=== PATIENT | male | born 1945 | race Caucasian/White ===

== ENCOUNTER 2017-05-30 16:46 | Inpatient (IN) | payer OTHER, MEDICARE ==
[~2017-05-30] VITALS: Ht 172.7 cm; Wt 83.0 kg
[~2017-05-30 16:46] MED LIST: TAMS0.4C67 PO
[2017-05-30 16:59] VITALS: BP 150/71; PULSE 84; RESP 24; TEMP 98.5; O2SAT 100
[2017-05-30] MEDS ORDERED: BUPIVACAINE HCL PF 0.5% 10 ML VIAL NERV BLOCK ONE (17:00)
[2017-05-30] MEDS ORDERED: AMPICILLIN-SULBACTAM INJ 3 GM in SODIUM CHLORIDE 0.9% INJ 100 ML IV ONE (17:00)
[2017-05-30] MEDS ORDERED: LIDOCAINE HCL 1% 20 ML VIAL INFIL ONE (17:00)
[2017-05-30] MEDS ORDERED: MORPHINE SULFATE 2 MG/ML INJ IV PUSH ONE ×2 (17:00→18:15)
[2017-05-30] MEDS ORDERED: ONDANSETRON HCL 4 MG/2 ML VIAL IV PUSH ONE (17:00)
[2017-05-30] MEDS ORDERED: TETANUS/DIPHTHERIA TOXOID ADULT 0.5 ML VIAL IM ONE (17:00)
[2017-05-30] MEDS ORDERED: TAMS0.4C4 PO (17:05)
[2017-05-30] MEDS ORDERED: SODIUM CHLORID 0.9% 500 ML INJ 500 ML IV ONE (17:15)
[2017-05-30 17:23] VITALS: BP 150/75; PULSE 85; RESP 17; O2SAT 100
--- NOTE | 2017-05-30 17:35 | RADRPT ---
EXAM DATE/TIME: 05/30/2017 17:06 [facility] COMPARISON: No previous studies available for comparison. INDICATIONS : Shortness of breath. MEDICAL HISTORY : None. SURGICAL HISTORY : None. ENCOUNTER: Initial ACUITY: 1 day PAIN SCORE: 0/10 LOCATION: Bilateral chest FINDINGS: A single view of the chest demonstrates the lungs to be symmetrically aerated without evidence of mas s, infiltrate or effusion. The cardiomediastinal contours are unremarkable. Osseous structures are intact. CONCLUSION: No acute disease. Randy Gomez MD on May 30, 2017 at 17:33 Board Certified Radiologist. This report was verified electronically.
--- NOTE | 2017-05-30 17:57 | RADRPT ---
EXAM DATE/TIME: 05/30/2017 17:10 [facility] COMPARISON: No previous studies available for comparison. INDICATIONS : Left hand, first digit pain and laceration. MEDICAL HISTORY : None. SURGICAL HISTORY : None. ENCOUNTER: Initial ACUITY: 1 day PAIN SCORE: 9/10 LOCATION: Left hand, first digit. FINDINGS: AP, lateral and oblique views of the left hand were obtained and demonstrate amputation of the distal portion of the first distal phalanx with overlying soft tissue swelling. There is a flexion type def ormity involving the fifth proximal phalangeal joint. There is diffuse osteopenia with no acute fract ure. Osteoarthritic change is present. CONCLUSION: Amputation of the distal half of the first phalanx. Randy Gomez MD on May 30, 2017 at 17:54 Board Certified Radiologist. This report was verified electronically.
--- NOTE | 2017-05-30 18:21 | PD ---
HPI Chief Complaint: Bite or Sting Time Seen by Provider: 16:56 Travel History International Travel<30 days: No Contact w/Intl Traveler<30days: No Traveled to known affect area: No History of Present Illness HPI 71-year-old male that presents to the ED for evaluation of dog bite to the left hand. Per patient he was helping his neighbor's dog who apparently got hit by a car and was holding severely. Patient felt compelled to help the animal and when he tried to grab the dog to console the animal dog bit him on his left hand. Patient had an amputation of his left thumb from the bite. 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 Patient states that he has 6 out of 10 pain on the finger. After the incident patient apparently had a syncopal episode. He does not believe that he lost complete consciousness. Ambulance showed up and give him some fluids and Zofran. Per patient his been doing well since. He does not know the last time he had tetanus booster. He has no allergies to medication. He denies any other injuries. He states that the only medical history he has his BPH. Denies any chest pain or shortness of breath. Injury occurred an hour ago. Per patient he last ate about 2 hours ago before coming. PFSH Past Medical History Diminished Hearing: No Genitourinary: Yes (PROSTATE ) Tetanus Vaccination: Never Vaccinated Influenza Vaccination: No Past Surgical History Surgical History: No Previous Surgery Social History Alcohol Use: Yes (OCCASIONAL RARE) Tobacco Use: No Substance Use: Yes (MARIJUANA IN THE PAST) Allergies-Medications (Allergen,Severity, Reaction): Coded Allergies: No Known Allergies (Unverified Adverse Reaction, Unknown, 05/30/17) Reported Meds & Prescriptions Reported Meds & Active Scripts Active Reported Tamsulosin (Tamsulosin HCl) 0.4 Mg Cap 0.4 Mg PO HS Review of Systems Except as stated in HPI: all other systems reviewed are Neg Physical Exam Narrative GENERAL: SKIN: Warm and dry. HEAD: Atraumatic. Normocephalic. EYES: Pupils equal and round. No scleral icterus. No injection or drainage. ENT: No nasal bleeding or discharge. Mucous membranes pink and moist. Tongue is midline. No uvula deviation. NECK: Trachea midline. No JVD. CARDIOVASCULAR: Regular rate and rhythm. RESPIRATORY: No accessory muscle use. Clear to auscultation. Breath sounds equal bilaterally. GASTROINTESTINAL: Abdomen soft, non-tender, nondistended. Hepatic and splenic margins not palpable. MUSCULOSKELETAL: Extremities without clubbing, cyanosis, or edema. No obvious deformities. Full range of motion of the upper and lower extremities bilaterally. Patient has an amputation around the area of the joint of the left thumb. Tender to touch. Minimal bleeding noted. Good pulses and good sensation. No other deformities or injuries noted on the fingers. 2+ pulses bilaterally. NEUROLOGICAL: Awake and alert. No obvious cranial nerve deficits. Motor grossly within normal limits. Five out of 5 muscle strength in the arms and legs. Normal speech. PSYCHIATRIC: Appropriate mood and affect; insight and judgment normal. Data Data Last Documented VS Vital Signs Date Time Temp Pulse Resp B/P (MAP) Pulse Ox O2 Delivery O2 Flow Rate FiO2 05/30/17 17:23 85 17 150/75 (100) 100 Room Air 05/30/17 16:59 98.5 Orders Orders Hand, Complete ([id number]) (05/30/17 16:56) Ice/Cold Pack (05/30/17 16:56) Complete Blood Count With Diff (05/30/17 16:56) Comprehensive Metabolic Panel (05/30/17 16:56) Ckmb (Isoenzyme) Profile (05/30/17 16:56) Troponin I (05/30/17 16:56) Prothrombin Time / Inr (Pt) (05/30/17 16:56) Act Partial Throm Time (Ptt) (05/30/17 16:56) Urinalysis - C+S If Indicated (05/30/17 16:56) Magnesium (Mg) (05/30/17 16:56) Chest, Single Ap (05/30/17 16:56) Ct Brain W/O Iv Contrast(Rout) (05/30/17 16:56) Iv Access Insert/Monitor (05/30/17 16:56) Ecg Monitoring (05/30/17 16:56) Oximetry (05/30/17 16:56) Lidocaine 1% Inj (Xylocaine 1% Inj) (05/30/17 17:00) Morphine Inj (Morphine Inj) (05/30/17 17:00) Ondansetron Inj (Zofran Inj) (05/30/17 17:00) Ampicillin-Sulbactam Inj (Unasyn Inj) (05/30/17 17:00) Tetanus/Diphtheria Tox Adult (Tetanus/Di (05/30/17 17:00) Bupivacaine Pf 0.5% Inj (Marcaine Pf 0.5 (05/30/17 17:00) Sodium Chlorid 0.9% 500 Ml Inj (Ns 500 M (05/30/17 17:15) Wound Care (05/30/17 17:34) Morphine Inj (Morphine Inj) (05/30/17 18:15) Electrocardiogram (05/30/17 ) CKMB (05/30/17 17:00) CKMB% (05/30/17 17:00) Admit Order (Ed Use Only) (05/30/17 19:11) Consult Hand Surgery (05/30/17 ) Labs Laboratory Tests Test 05/30/17 17:00 White Blood Count 7.6 TH/MM3 Red Blood Count 4.36 MIL/MM3 Hemoglobin 14.8 GM/DL Hematocrit 41.5 % Mean Corpuscular Volume 95.0 FL Mean Corpuscular Hemoglobin 34.0 PG Mean Corpuscular Hemoglobin Concent 35.8 % Red Cell Distribution Width 13.1 % Platelet Count 276 TH/MM3 Mean Platelet Volume 8.1 FL Neutrophils (%) (Auto) 68.7 % Lymphocytes (%) (Auto) 22.5 % Monocytes (%) (Auto) 7.4 % Eosinophils (%) (Auto) 1.0 % Basophils (%) (Auto) 0.4 % Neutrophils # (Auto) 5.2 TH/MM3 Lymphocytes # (Auto) 1.7 TH/MM3 Monocytes # (Auto) 0.6 TH/MM3 Eosinophils # (Auto) 0.1 TH/MM3 Basophils # (Auto) 0.0 TH/MM3 CBC Comment DIFF FINAL Differential Comment Prothrombin Time 10.0 SEC Prothromb Time International Ratio 1.0 RATIO Activated Partial Thromboplast Time 23.7 SEC Blood Urea Nitrogen 14 MG/DL Creatinine 1.19 MG/DL Random Glucose 111 MG/DL Total Protein 7.2 GM/DL Albumin 3.9 GM/DL Calcium Level 8.2 MG/DL Magnesium Level 2.0 MG/DL Alkaline Phosphatase 118 U/L Aspartate Amino Transf (AST/SGOT) 31 U/L Alanine Aminotransferase (ALT/SGPT) 34 U/L Total Bilirubin 1.0 MG/DL Sodium Level 140 MEQ/L Potassium Level 3.7 MEQ/L Chloride Level 106 MEQ/L Carbon Dioxide Level 19.9 MEQ/L Anion Gap 14 MEQ/L Estimat Glomerular Filtration Rate 61 ML/MIN Total Creatine Kinase 133 U/L Creatine Kinase MB 2.7 NG/ML Troponin I LESS THAN 0.02 NG/ML MDM Medical Decision Making Medical Screen Exam Complete: Yes Emergency Medical Condition: Yes Medical Record Reviewed: Yes Interpretation(s) Last Impressions Hand X-Ray 05/30/171655 Signed Impressions: Service Date/Time: May 17:10 - CONCLUSION: Amputation of the distal half of the first phalanx. Randy Gomez MD Chest X-Ray 05/30/171655 Signed Impressions: Service Date/Time: May 17:06 - CONCLUSION: No acute disease. Randy Gomez MD Differential Diagnosis Finger amputation versus dog bite versus dog bite infection Narrative Course 71-year-old male that presents to the ED for evaluation of left first digit amputation. Patient was properly examined and was found to have signs and symptoms consistent with finger amputation. Case was immediately discussed with Dr. Swanson who agrees the patient should be admitted to medicine and become NPO for surgery tonight. Patient was started IV antibiotics. Labs and imaging were done to rule out any sign of other syncopal causes but likely secondary to vasovagal from the injury. Patient agreed for us to proceed. Labs and imaging were essentially unremarkable other than for the above-mentioned injury. patient was admitted to Dr Carcamo who agrees with plan. patient and family agree with plan. Diagnosis Primary Impression: Dog bite of finger Qualified Codes: S61.259A - Open bite of unspecified finger without damage to nail, initial encounter; W54.0XXA - Bitten by dog, initial encounter Additional Impression: Finger amputation, traumatic Qualified Codes: S68.119A - Complete traumatic metacarpophalangeal amputation of unspecified finger, initial encounter Admitting Information Admitting Physician Requests: Admit Arash Ochoa May 30, 2017 18:21
[2017-05-30 18:26] LABS: AUTOMATED NEUTROPHIL # 5.2 TH/MM3 (1.8-7.7); BASOPHIL % 0.4 % (0.0-2.0); EOSINOPHIL # 0.1 TH/MM3 (0-0.4); HEMATOCRIT 41.5 % (39.0-51.0); HEMOGLOBIN 14.8 GM/DL (13.0-17.0); LYMPH % 22.5 % (9.0-44.0); LYMPHOCYTE # 1.7 TH/MM3 (1.0-4.8); MEAN CORPUSCULAR HGB CONC 35.8 % (32.0-36.0); MEAN PLATELET VOLUME 8.1 FL (7.0-11.0); MONO % 7.4 % (0.0-8.0); MONOCYTE # 0.6 TH/MM3 (0-0.9); NEUT % 68.7 % (16.0-70.0); PLATELET COUNT 276 TH/MM3 (150-450); RED BLOOD COUNT 4.36 MIL/MM3 (4.50-5.90); RED CELL DISTRIBUTION WIDTH 13.1 % (11.6-17.2); WHITE BLOOD COUNT 7.6 TH/MM3 (4.0-11.0)
[2017-05-30 18:47] LABS: ALBUMIN 3.9 GM/DL (3.4-5.0); ALKALINE PHOSPHATASE 118 U/L (45-117); ALT (GPT) 34 U/L (12-78); AST (GOT) 31 U/L (15-37); BICARBONATE 19.9 MEQ/L (21.0-32.0); BLOOD UREA NITROGEN 14 MG/DL (7-18); CALCIUM 8.2 MG/DL (8.5-10.1); CHLORIDE 106 MEQ/L (98-107); CREATININE 1.19 MG/DL (0.60-1.30); GLOMERULAR FILTRATION RATE 61 ML/MIN (>89); GLUCOSE,RANDOM 111 MG/DL (74-106); SODIUM (NA) 140 MEQ/L (136-145); TOTAL PROTEIN 7.2 GM/DL (6.4-8.2); TROPONIN I LESS THAN 0.02 NG/ML (0.02-0.05)
--- NOTE | 2017-05-30 18:54 | RADRPT ---
EXAM DATE/TIME: 05/30/2017 18:26 [facility] COMPARISON: No previous studies available for comparison. INDICATIONS : Head pain due to fall. RADIATION DOSE: 36.84 CTDIvol (mGy) MEDICAL HISTORY : None SURGICAL HISTORY : None. ENCOUNTER: Initial ACUITY: 1 day PAIN SCALE: 1/10 LOCATION: Bilateral cranial TECHNIQUE: Multiple contiguous axial images were obtained of the head. Using automated exposure control and adj ustment of the mA and/or kV according to patient size, radiation dose was kept as low as reasonably a chievable to obtain optimal diagnostic quality images. DICOM format image data is available electro nically for review and comparison. FINDINGS: CEREBRUM: The ventricles are normal for age. No evidence of midline shift, mass lesion, hemorrhage or acute in farction. No extra-axial fluid collections are seen. POSTERIOR FOSSA: The cerebellum and brainstem are intact. The 4th ventricle is midline. The cerebellopontine angle i s unremarkable. EXTRACRANIAL: The visualized portion of the orbits is intact. SKULL: The calvaria is intact. No evidence of skull fracture. CONCLUSION: Negative noncontrast head CT. Olivier Irizarry MD on May 30, 2017 at 18:50 Board Certified Radiologist. This report was verified electronically.
[2017-05-30] MEDS ORDERED: fentaNYL CITRATE 250 MCG/5 ML AMP ONE (19:20)
[2017-05-30] MEDS ORDERED: NALOXONE HCL 0.4 MG/ML AMP IV PUSH PRN (20:00)
[2017-05-30] MEDS ORDERED: MORPHINE SULFATE 2 MG/ML INJ IV PUSH PRN (20:00)
[2017-05-30] MEDS ORDERED: SODIUM CHLORIDE 0.9% FLUSH 10 ML FLUSH IV FLUSH PRN (20:00)
[2017-05-30] MEDS ORDERED: SODIUM CHLORIDE 0.9% FLUSH 10 ML FLUSH IV FLUSH SCH (21:00)
[2017-05-30] MEDS ORDERED: BACITRACIN TOP OINT 15 GM TUBE ONE (21:43)
--- NOTE | 2017-05-30 22:05 | PD.OP ---
Operative Report Preoperative Diagnosis: (1) Partial traumatic metacarpophalangeal amputation of left thumb, initial encounter (2) Dog bite of left thumb Postoperative Diagnosis: (1) Partial traumatic metacarpophalangeal amputation of left thumb, initial encounter (2) Dog bite of left thumb Procedure: exploration, wash, revision amputation and closure left thumb partial amputation Anesthesia: local 5 cc of 2% lidocaine and 0.5% marcaine Surgeon: Surjit Hamm Commercial Photographer(s): claudia Operation and Findings: partial transverse traumatic amputation through distal phalanx base left thumb with exposed bone Surjit Hamm MD May 30, 2017 22:05
[2017-05-30] MEDS ORDERED: FAMOTIDINE 20 MG/2 ML VIAL ONE ×2 (22:21→22:23)
[2017-05-30] MEDS: AMPICILLIN-SULBACTAM INJ 3 GM in SODIUM CHLORIDE 0.9% INJ 100 ML IV SCH (23:28)
[2017-05-30 23:40] VITALS: PULSE 71
[2017-05-31] VITALS: BP 137/73; PULSE 73; RESP 16; TEMP 95; O2SAT 96
[2017-05-31] MEDS ORDERED: TAMSULOSIN HCL 0.4 MG CAP PO ONE
--- NOTE | 2017-05-31 00:05 | HHI.HP ---
HPI Service [facility] Primary Care Physician Unknown Admission Diagnosis acute left thumb amputation, dog bite, syncope Diagnoses: (1) Dog bite of left thumb (2) Partial traumatic metacarpophalangeal amputation of left thumb, initial encounter (3) Syncope Chief Complaint: "Dog bit the tip of my thumb off" Travel History International Travel<30 Days: No Contact w/Intl Traveler <30 Da: No Traveled to Known Affected Are: No History of Present Illness Mr. Rosario is a very pleasant 71-year-old male with a history of benign prostatic hypertrophy who presented to the emergency department on 05/30/2017 after a dog bit his distal thumb off. The patient is seen in his hospital room postoperatively. He states that there is a hearing-impaired couple who live next door to him who have a service dog that was hit by a car. He ran into the street to try to remove the dog from oncoming traffic and further injury when the dog lashed out and bit him. He states he immediately noted that the tip of his thumb was missing and no one was able to ever recover this missing piece. He sat on the front steps at his house with his hand up while EMS was there and he began to feel diaphoretic, lightheaded, nauseated, and experienced a syncopal episode after the injury. When he came to, he noticed a small amount of vomit on his shirt. He denies any chest pain, shortness of breath, or headache prior to the syncopal episode. He has never had a prior syncopal episode. He denies any recent illness, fever, chills, nausea, vomiting, or diarrhea. He denies any history of diabetes mellitus, hypertension, coronary artery disease, irregular heart rhythm , liver disease, kidney disease, DVT, PE, CVA, seizures, thyroid disease, or cancer. Review of Systems Except as stated in HPI: all other systems reviewed are Neg Past Family Social History Past Medical History BPH . Past Surgical History Denies . Reported Medications Reported Meds & Active Scripts Active Reported Tamsulosin (Tamsulosin HCl) 0.4 Mg Cap 0.4 Mg PO HS . Allergies: Coded Allergies: No Known Allergies (Unverified Allergy, Unknown, 05/30/17) Active Ordered Medications Current Medications Lidocaine HCl (Xylocaine 1% Inj) 20 ml ONCE ONCE INFIL ; Start 05/30/17 at 17: 00; Stop 05/30/17 at 17:58; Status DC Morphine Sulfate (Morphine Inj) 4 mg ONCE ONCE IV PUSH Last administered on 04/06at 17:19; Start 05/30/17 at 17:00; Stop 05/30/17 at 17:02; Status DC Ondansetron HCl (Zofran Inj) 4 mg ONCE ONCE IV PUSH Last administered on at 17:21; Start 05/30/17 at 17:00; Stop 05/30/17 at 17:02; Status DC Ampicillin Sodium/ Sulbactam Sodium 3 gm/Sodium Chloride 100 ml @ 200 mls/hr ONCE ONCE IV Last administered on 05/30/17at 17:19; Start 05/30/17 at 17:00; Stop 05/30/17 at 17:29; Status DC Tetanus/ Diphtheria Toxoids (Tetanus/ Diphtheria Tox Adult) 0.5 ml ONCE ONCE IM Last administered on 05/30/17at 17:20; Start 05/30/17 at 17:00; Stop 05/30/17 at 17:02; Status DC Bupivacaine HCl (Marcaine Pf 0.5% Inj) 5 ml ONCE ONCE NERV BLOCK Last administered on 05/30/17at 17:21; Start 05/30/17 at 17:00; Stop 05/30/17 at 17:02 ; Status DC Sodium Chloride 500 ml @ 500 mls/hr BOLUS ONCE IV Last administered on at 17:21; Start 05/30/17 at 17:15; Stop 05/30/17 at 18:14; Status DC Morphine Sulfate (Morphine Inj) 4 mg ONCE ONCE IV PUSH ; Start 05/30/17 at 18: 15; Stop 05/30/17 at 18:16; Status DC Fentanyl Citrate (fentaNYL INJ) 250 mcg STK-MED ONCE .ROUTE ; Start 05/30/17 at 19:20; Stop 05/30/17 at 19:21; Status DC Sodium Chloride (NS Flush) 2 ml UNSCH PRN IV FLUSH FLUSH AFTER USING IV ACCESS ; Start 05/30/17 at 20:00 Sodium Chloride (NS Flush) 2 ml BID IV FLUSH ; Start 05/30/17 at 21:00 Naloxone HCl (Narcan Inj) 0.4 mg UNSCH PRN IV PUSH SEE LABEL COMMENTS; Start at 20:00 Ampicillin Sodium/ Sulbactam Sodium 3 gm/Sodium Chloride 100 ml @ 200 mls/hr Q6H IV Last administered on 05/30/17at 23:28; Start 05/30/17 at 23:00 Morphine Sulfate (Morphine Inj) 2 mg Q3H PRN IV PUSH pain >5; Start 05/30/17 at 20:00 Bacitracin (Baciguent Oint) 15 applic STK-MED ONCE .ROUTE ; Start 05/30/17 at 21 :43; Stop 05/30/17 at 21:44; Status DC Famotidine (Pepcid Inj) 20 mg STK-MED ONCE .ROUTE Last administered on at 22:21; Start 05/30/17 at 22:21; Stop 05/30/17 at 22:22; Status DC Famotidine (Pepcid Inj) 20 mg STK-MED ONCE .ROUTE Last administered on at 22:23; Start 05/30/17 at 22:23; Stop 05/30/17 at 22:24; Status DC . Family History Mother with dementia, lived into her 80's Father in 80's from complications related to aging process - history of alcohol abuse . 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 Physical Exam Vital Signs Vital Signs Date Time Temp Pulse Resp B/P (MAP) Pulse Ox O2 Delivery O2 Flow Rate FiO2 05/30/17 22:15 97.7 74 18 155/77 (103) 96 Room Air 05/30/17 19:47 97.7 77 18 159/86 (110) 97 05/30/17 17:23 85 17 150/75 (100) 100 Room Air 05/30/17 16:59 98.5 84 24 150/71 (97) 100 Physical Exam GENERAL: This is a well-nourished, well-developed patient, in no apparent distress. SKIN: Cool and dry. Left thumb covered with bandage - did not remove to examine in this immediate post-operative period. Purple/reddish papular lesion upper mid sternum being managed by outpatient director of primary per patient. HEAD: Atraumatic. Normocephalic. EYES: No scleral icterus. No injection or drainage. ENT: Nose without bleeding, purulent drainage. NECK: Trachea midline. No JVD or lymphadenopathy. CARDIOVASCULAR: Regular rate and rhythm without murmurs, gallops, or rubs. RESPIRATORY: Clear to auscultation. Breath sounds equal bilaterally. No wheezes , rales, or rhonchi. GASTROINTESTINAL: Abdomen soft, non-tender, nondistended. No guarding. MUSCULOSKELETAL: Extremities without clubbing, cyanosis, or edema. No calf tenderness. NEUROLOGICAL: Awake and alert. Motor and sensory grossly within normal limits. Normal speech. . Laboratory Laboratory Tests Test 05/30/17 17:00 White Blood Count 7.6 Red Blood Count 4.36 Hemoglobin 14.8 Hematocrit 41.5 Mean Corpuscular Volume 95.0 Mean Corpuscular Hemoglobin 34.0 Mean Corpuscular Hemoglobin Concent 35.8 Red Cell Distribution Width 13.1 Platelet Count 276 Mean Platelet Volume 8.1 Neutrophils (%) (Auto) 68.7 Lymphocytes (%) (Auto) 22.5 Monocytes (%) (Auto) 7.4 Eosinophils (%) (Auto) 1.0 Basophils (%) (Auto) 0.4 Neutrophils # (Auto) 5.2 Lymphocytes # (Auto) 1.7 Monocytes # (Auto) 0.6 Eosinophils # (Auto) 0.1 Basophils # (Auto) 0.0 CBC Comment DIFF FINAL Differential Comment Prothrombin Time 10.0 Prothromb Time International Ratio 1.0 Activated Partial Thromboplast Time 23.7 Blood Urea Nitrogen 14 Creatinine 1.19 Random Glucose 111 Total Protein 7.2 Albumin 3.9 Calcium Level 8.2 Magnesium Level 2.0 Alkaline Phosphatase 118 Aspartate Amino Transf (AST/SGOT) 31 Alanine Aminotransferase (ALT/SGPT) 34 Total Bilirubin 1.0 Sodium Level 140 Potassium Level 3.7 Chloride Level 106 Carbon Dioxide Level 19.9 Anion Gap 14 Estimat Glomerular Filtration Rate 61 Total Creatine Kinase 133 Creatine Kinase MB 2.7 Troponin I LESS THAN 0.02 Result Diagram: 05/30/17 1700 05/30/17 1700 Imaging Last Impressions Head CT 05/30/17 1656 Signed Impressions: Service Date/Time: May 18:26 - CONCLUSION: Negative noncontrast head CT. Olivier Irizarry MD Hand X-Ray 05/30/171655 Signed Impressions: Service Date/Time: May 17:10 - CONCLUSION: Amputation of the distal half of the first phalanx. Randy Gomez MD Chest X-Ray 05/30/171655 Signed Impressions: Service Date/Time: May 17:06 - CONCLUSION: No acute disease. Randy Gomez MD . Caprini VTE Risk Assessment Caprini VTE Risk Assessment: Mod/High Risk (score >= 2) Caprini Risk Assessment Model Point Value = 1 Point Value = 2 Point Value = 3 Point Value = 5 Age 41-60 Minor surgery BMI > 25 kg/m2 Swollen legs Varicose veins or History of unexplained or recurrent spontaneous Oral contraceptives or hormone replacement Sepsis (< 1 month) Serious lung disease, including pneumonia (< 1 month) Abnormal pulmonary function Acute myocardial infarction Congestive heart failure (< 1 month) History of inflammatory bowel disease Medical patient at bed rest Age 61-74 Arthroscopic surgery Major open surgery (> 45 min) Laparoscopic surgery (> 45 min) Malignancy Confined to bed (> 72 hours) Immobilizing plaster cast Central venous access Age >= 75 History of VTE Family history of VTE Factor V Leiden Prothrombin [id number] Lupus anticoagulant Anticardiolipin antibodies Elevated serum homocysteine Heparin-induced thrombocytopenia Other congenital or acquired thrombophilia Stroke (< 1 month) Elective arthroplasty Hip, pelvis, or leg fracture Acute spinal cord injury (< 1 month) Prophylaxis Regimen Total Risk Factor Score Risk Level Prophylaxis Regimen 0-1 Low Early ambulation 2 Moderate Order ONE of the following: *Sequential Compression Device (SCD) *Heparin 5000 units SQ BID 3-4 Higher Order ONE of the following medications: *Heparin 5000 units SQ TID *Enoxaparin/Lovenox 40 mg SQ daily (WT < 150 kg, CrCl > 30 mL/min) *Enoxaparin/Lovenox 30 mg SQ daily (WT < 150 kg, CrCl > 10-29 mL/min) *Enoxaparin/Lovenox 30 mg SQ BID (WT < 150 kg, CrCl > 30 mL/min) AND/OR *Sequential Compression Device (SCD) 5 or more Highest Order ONE of the following medications: *Heparin 5000 units SQ TID (Preferred with Epidurals) *Enoxaparin/Lovenox 40 mg SQ daily (WT < 150 kg, CrCl > 30 mL/min) *Enoxaparin/Lovenox 30 mg SQ daily (WT < 150 kg, CrCl > 10-29 mL/min) *Enoxaparin/Lovenox 30 mg SQ BID (WT < 150 kg, CrCl > 30 mL/min) AND *Sequential Compression Device (SCD) Assessment and Plan Problem List: (1) Syncope ICD Code: R55 - Syncope and collapse (2) Dog bite of left thumb ICD Code: S61.052A - Open bite of left thumb without damage to nail, initial encounter; W54.0XXA - Bitten by dog, initial encounter (3) Partial traumatic metacarpophalangeal amputation of left thumb, initial encounter ICD Code: S68.022A - Partial traumatic metacarpophalangeal amputation of left thumb, initial encounter (4) BPH without urinary obstruction ICD Code: N40.0 - Benign prostatic hyperplasia without lower urinary tract symptoms Assessment and Plan Mr. Rosario is a very pleasant 71-year-old male with a history of benign prostatic hypertrophy who presented to the emergency department on 05/30/2017 after a dog bit his distal thumb off. Left thumb dog bite Traumatic metacarpophalangeal amputation of distal thumb - Unasyn 3 grams IV q6h - Morphine 2 mg IV q3h PRN pain - surgical management per Dr. Hamm - Td in ED - dog was apparently up to date on vaccinations - was a service dog for a hearing impaired couple - may benefit from outpatient OT Syncope - likely secondary to traumatic experience - Head CT negative on admission - Cardiac enzymes negative on admission, will repeat - Monitor on continuous cardiac telemetry to evaluate for arrhythmia - Monitor vital signs every 4 hours - 12 lead EKG personally reviewed with nonspecific ST - T changes noted - will recheck EKG as no priors are available for comparison BPH - resume home Tamsulosin Heartburn - relieved with Pepcid in recovery room - Pepcid 20 mg p.o. BID DVT prophylaxis - SCDs/TEDs Discussed Condition With Patient, RN, and Dr. Carcamo Physician Certification 2 Midnight Certification Type: Admission for Inpatient Services Order for Inpatient Services The services are ordered in accordance with Medicare regulations or non- Medicare payer requirements, as applicable. In the case of services not specified as inpatient-only, they are appropriately provided as inpatient services in accordance with the 2-midnight benchmark. Estimated LOS (days): 2 days is the estimated time the patient will need to remain in the hospital, assuming treatment plan goals are met and no additional complications. Post-Hospital Plan: Home Lisbeth Barger May 31, 2017 00:05
[2017-05-31 02:40] LABS: TROPONIN I 0.04 NG/ML (0.02-0.05)
[2017-05-31 04:00] VITALS: BP 155/88; PULSE 73; RESP 16; TEMP 96.6; O2SAT 99
[2017-05-31] MEDS: AMPICILLIN-SULBACTAM INJ 3 GM in SODIUM CHLORIDE 0.9% INJ 100 ML IV SCH ×3 (04:38→17:00)
--- NOTE | 2017-05-31 06:28 | MB ---
cc: JANAK ROSALES MD DATE OF CONSULTATION May 30, 2017 REASON FOR CONSULTATION Partial thumb amputation from dog bite left thumb. HISTORY OF PRESENT ILLNESS The patient is a 71-year-old right-hand dominant male who presented to the ED with complaints of dog bite to the left thumb. The patient states he was trying to help his neighbor's dog which was got hit by a car and the dog bit his left thumb, partially amputating his left thumb. He denies any other injuries. He complains of pain and bleeding from the region. He also complains of wound over the left thumb region. The patient also gives history of syncopal episode. No loss of consciousness. PAST MEDICAL HISTORY AND SURGICAL HISTORY As noted. PHYSICAL EXAMINATION GENERAL: The patient is alert, oriented x3. LEFT HAND/THUMB: Examination of left hand/thumb reveals transverse partial amputation of the thumb distal to the DIP joint with exposed distal phalanx and soft tissues. Active bleeding noted from the region. The patient has intact active flexion of the thumb IP joint which is limited. No other injuries noted. He has full flexion of the fingers. X-RAYS X-rays of the left hand and thumb reveals transverse amputation through the base of the distal phalanx with loss of soft tissue. ASSESSMENT A 71-year-old male with partial traumatic amputation left thumb from dog bite. PLAN We will be take the patient emergently for OR exploration, wash, revision amputation and closure of left thumb laceration. The patient has been explained the risks and benefits of the procedure. Janak Rosales MD SE/DAMION /8:01 PM /6:05 AM
[2017-05-31 08:00] VITALS: BP 103/66; PULSE 59; RESP 18; TEMP 96.6; O2SAT 96
[2017-05-31] MEDS: ACETAMINOPHEN/HYDROcodone 325 MG/5 MG TAB PO PRN ×2 (08:12→17:55)
[2017-05-31] MEDS ORDERED: FAMOTIDINE 20 MG TAB PO SCH (09:00)
[2017-05-31 09:02] LABS: BASOPHIL % 0.3 % (0.0-2.0); EOSINOPHIL # 0.1 TH/MM3 (0-0.4); EOSINOPHIL % 0.6 % (0.0-4.0); HEMATOCRIT 39.6 % (39.0-51.0); HEMOGLOBIN 13.6 GM/DL (13.0-17.0); LYMPH % 15.2 % (9.0-44.0); LYMPHOCYTE # 1.4 TH/MM3 (1.0-4.8); MEAN CELL VOLUME 96.1 FL (80.0-100.0); MEAN CORPUSCULAR HGB CONC 34.3 % (32.0-36.0); MEAN PLATELET VOLUME 7.8 FL (7.0-11.0); MONO % 7.1 % (0.0-8.0); MONOCYTE # 0.6 TH/MM3 (0-0.9); NEUT % 76.8 % (16.0-70.0); PLATELET COUNT 208 TH/MM3 (150-450); RED BLOOD COUNT 4.12 MIL/MM3 (4.50-5.90); RED CELL DISTRIBUTION WIDTH 13.8 % (11.6-17.2); WHITE BLOOD COUNT 9.1 TH/MM3 (4.0-11.0)
[2017-05-31 09:23] LABS: BICARBONATE 24.5 MEQ/L (21.0-32.0); CALCIUM 8.1 MG/DL (8.5-10.1)
[2017-05-31 09:27] LABS: TROPONIN I 0.02 NG/ML (0.02-0.05)
[2017-05-31 12:00] VITALS: BP 141/82; PULSE 80; RESP 16; TEMP 97; O2SAT 99
--- NOTE | 2017-05-31 15:29 | HHI.PR ---
Subjective Remarks Follow up left thumb amputation by dog bite. Patient reports good pain control. No dizziness, lightheadedness, chest pain, dyspnea. Objective Vitals Vital Signs Date Time Temp Pulse Resp B/P (MAP) Pulse Ox O2 Delivery O2 Flow Rate FiO2 05/31/17 04:00 96.6 73 16 155/88 (110) 99 05/31/17 00:00 95.0 73 16 137/73 (94) 96 05/30/17 23:40 71 05/30/17 22:15 97.7 74 18 155/77 (103) 96 Room Air 05/30/17 19:47 97.7 77 18 159/86 (110) 97 05/30/17 17:23 85 17 150/75 (100) 100 Room Air 05/30/17 16:59 98.5 84 24 150/71 (97) 100 I/O 05/30/17 05/30/17 05/30/17 05/31/17 05/31/17 05/31/17 07:00 15:00 23:00 07:00 15:00 23:00 Intake Total 700 ml 400 ml Output Total 50 ml 600 ml Balance 650 ml -200 ml Intake Oral 400 ml IV Total 700 ml Output Urine Total 600 ml Estimated Blood Loss 50 ml # Voids 1 Result Diagram: 05/31/17 0810 05/31/17 0810 Imaging Last Impressions Head CT 05/30/171655 Signed Impressions: Service Date/Time: May 18:26 - CONCLUSION: Negative noncontrast head CT. Olivier Irizarry MD Hand X-Ray 05/30/171655 Signed Impressions: Service Date/Time: May 17:10 - CONCLUSION: Amputation of the distal half of the first phalanx. Randy Gomez MD Chest X-Ray 05/30/171655 Signed Impressions: Service Date/Time: May 17:06 - CONCLUSION: No acute disease. Randy Gomez MD Objective Remarks General: No acute distress. Heart: Regular rate and rhythm. No murmur. Lungs: Clear to auscultation bilaterally. No wheezes, rales, or rhonchi. Breathing is nonlabored. Abdomen: Soft, nontender, nondistended. Extremities: No lower extremity edema. Left hand bandaged and elevated. Lower extremity SCDs. Psych: Alert and oriented. Procedures 05/30/17 exploration, wash, revision amputation, and closure left thumb partial amputation Urinary Catheter: No Vascular Central Line Catheter: No A/P Problem List: (1) Syncope ICD Code: R55 - Syncope and collapse (2) Dog bite of left thumb ICD Code: S61.052A - Open bite of left thumb without damage to nail, initial encounter; W54.0XXA - Bitten by dog, initial encounter (3) Partial traumatic metacarpophalangeal amputation of left thumb, initial encounter ICD Code: S68.022A - Partial traumatic metacarpophalangeal amputation of left thumb, initial encounter (4) BPH without urinary obstruction ICD Code: N40.0 - Benign prostatic hyperplasia without lower urinary tract symptoms Assessment and Plan 1. Left thumb dog bite, traumatic metacarpophalangeal amputation of the distal thumb: Status post surgical intervention by hand surgery. Continue antibiotics, pain control. Patient received tetanus booster. Dog was reportedly up-to-date on vaccinations. 2. Syncopal episode: Likely secondary to the traumatic experience. Head CT is negative. Cardiac enzymes are negative. EKG shows nonspecific ST-T wave changes. No arrhythmia noted on cardiac telemetry. 3. BPH: Continue Flomax. 4. Heartburn: Continue Pepcid. 5. DVT prophylaxis: CARLO Byers. Discharge Planning The patient wants to go home today. Plan for discharge home when cleared by hand surgery. Talha Wilkerson MD May 31, 2017 15:29
[2017-05-31] MEDS ORDERED: AUGM875T3 PO (15:32)
[2017-05-31] MEDS ORDERED: FAMO20TA2 PO (15:32)
[2017-05-31] MEDS ORDERED: HYDR-3516 PO (15:33)
--- NOTE | 2017-05-31 15:33 | HHI.DCPOC ---
Discharge Care Plan Diagnosis: (1) Finger amputation, traumatic (2) Syncope (3) Partial traumatic metacarpophalangeal amputation of left thumb, initial encounter (4) BPH without urinary obstruction (5) Dog bite of left thumb Goals to Promote Your Health * To prevent worsening of your condition and complications * To maintain your health at the optimal level Directions to Meet Your Goals Take your medications as prescribed Follow your dietary instruction Follow activity as directed Keep your appointments as scheduled Take your immunizations and boosters as scheduled If your symptoms worsen call your PCP, if no PCP go to Urgent Care Center or Emergency Room Smoking is Dangerous to Your Health. Avoid second hand smoke Call the 24-hour hour crisis hotline for domestic abuse at Talha Wilkerson MD May 31, 2017 15:33
--- NOTE | 2017-05-31 16:43 | EKG ---
Date Performed: 05/31/2017 Time Performed: 09:34:33 PTAGE: 71 years EKG: Sinus rhythm NONSPECIFIC ST & T-WAVE ABNORMALITY ABNORMAL ECG PREVIOUS TRACING : 05/30/2017 20.34 Since previous tracing, no significant change noted DOCTOR: Dewayne Leonard Interpretating Date/Time 05/31/2017 16:42:02
--- NOTE | 2017-05-31 16:43 | EKG ---
Date Performed: 05/30/2017 Time Performed: 20:34:44 PTAGE: 71 years EKG: Sinus rhythm NONSPECIFIC ST & T-WAVE ABNORMALITY BORDERLINE ECG NO PREVIOUS TRACING DOCTOR: Dewayne Leonard Interpretating Date/Time 05/31/2017 16:41:28
--- NOTE | 2017-05-31 17:13 | MP ---
cc: JANAK ROSALES DATE OF SURGERY 05/30/17 PREOPERATIVE DIAGNOSIS Dog bite to left thumb with partial traumatic amputation left thumb. POSTOPERATIVE DIAGNOSIS Dog bite to left thumb with partial traumatic amputation through distal phalanx left thumb. PROCEDURE Exploration wash, revision amputation and closure of left thumb and partial amputation ANESTHESIA Local 5 mL of 2% lidocaine and 0.7% Marcaine mixture. ESTIMATED BLOOD LOSS Minimal TOURNIQUET TIME Finger Wakefield tourniquet 10 minutes. DISPOSITION To PACU stable. INDICATIONS The patient is a 71-year-old male who presented to the ED with dog bite to the left thumb with partial traumatic amputation. On examination, he had a transverse partial traumatic amputation through the distal phalanx with exposed distal phalanx. The patient had intact IP joint flexion with limitation. X-ray showed partial traumatic amputation through the base of the distal phalanx. The patient was consented for exploration, wash, revision amputation and closure of the left thumb. The patient was explained risks and benefits of the procedure. PROCEDURE IN DETAIL The patient was brought to the operating room. The left upper extremity was thoroughly prepped and draped. Five mL of local anesthesia containing mixture of 2% lidocaine 0.7 Marcaine was injected as a digital block. Finger Wakefield tourniquet was applied. Thorough wash of the wound was carried out with normal saline mixed with irrigant. Using a rongeur, the distal phalanx was rongeured to a smooth surface. The soft tissues were mobilized. Excisional debridement of devitalized tissue was carried out. The soft tissue was then mobilized dorsally. The nail bed was trimmed just proximal to the distal phalanx region. The volar soft tissues were then mobilized and anchored to the dorsal soft tissues using multiple 4-0 Vicryl stitches closing the exposed bone. The skin was then partially reapproximated using multiple interrupted 5-0 nylon in a horizontal mattress fashion. The patient had complete coverage of the bone. He still had exposed soft tissues measuring about 2 mm along the length of the thumb tip. The finger Wakefield tourniquet was removed. Total tourniquet time was 10 minutes. He had good distal circulation after release of tourniquet. Xeroform bacitracin dressing applied. Bulky thumb dressing was applied which was held in place by a Anthony. The patient was recovered and sent to go recovery in stable condition. The plan will be to continue antibiotics for 24 hours and plan for discharge tomorrow with p.o. Augmentin. Janak Rosales MD SE/ /10:03 PM /5:02 PM
[2017-05-31] MEDS ORDERED: TAMSULOSIN HCL 0.4 MG CAP PO SCH (21:00)
== END 2017-05-31 18:52 | disposition home or self-care (01) | DRG 906 ==
LOC: NEPE 16:46 → NEDA 19:14 → N06A 22:45
PROVIDERS: ADMIT Family Medicine; ATTEND Family Medicine
PROC: 0PDS0ZZ Extraction of Left Thumb Phalanx, Open Approach (ICD-10-PCS; 2017-05-30)
PROC: 0JBK0ZZ Excision of Left Hand Subcutaneous Tissue and Fascia, Open Approach (ICD-10-PCS; principal; 2017-05-30 21:04)
DX: S68.022A Partial traumatic metacarpophalangeal amputation of left thumb, initial encounter (principal); R55 Syncope and collapse; N40.0 Benign prostatic hyperplasia without lower urinary tract symptoms; R12 Heartburn; F12.90 Cannabis use, unspecified, uncomplicated; W54.0XXA Bitten by dog, initial encounter
CPT/HCPCS: 70450; 71045; 73130; 80048; 80053; 82550; 82552; 83735; 84484; 85025; 85610; 85730; 90471; 90714; 93005; 96361; 96365; 96375; J0295; J2270; J2405; J3010; J7040

== ENCOUNTER 2018-05-23 14:38 | Inpatient (IN) ==
[2018-05-23] MEDS ORDERED: Sod Chloride 0.9% Inj 1,000 ML IV.SIG ONE (18:12)
--- NOTE | 2018-05-23 18:20 | ED ---
HPI General Chief Complaint: Extremity Injury, Upper Stated Complaint: Right Thumb Complaint Time Seen by Provider: 05/23/18 17:54 Source: patient Mode of arrival: ambulatory Limitations: no limitations History of Present Illness HPI narrative: 72-year-old [id number] male with PMH of HTN presents the ED for evaluation of approximate 1 week history of pain, swelling and darkening of the right thumb. Patient can identify no acute injury. He rates the pain 6/10, worsened by certain motions. No alleviating factors reported. He denies numbness, tingling, weakness, limitations to range of motion of the extremity. He denies history of MRSA. He saw his primary care provider and has taken 3 days worth of Bactrim with no improvement of symptoms. He sent pictures to Dr. Hamm who asked him to meet him in the emergency room today. States he has not had anything to eat since about 10 AM today. Related Data Home Medications Medication Instructions Recorded Confirmed propranolol 20 mg PO DAILY 05/23/18 05/23/18 sulfamethoxazole-trimethoprim 1 tab PO BID 05/23/18 05/23/18 [Bactrim DS] tamsulosin [Flomax] 0.4 mg PO DAILY 05/23/18 05/23/18 Allergies Allergy/AdvReac Type Severity Reaction Status Date / Time No Known Allergies Allergy Verified 05/23/18 14:47 Review of Systems ROS: all other systems reviewed are negative FOR[facility]LY [facility] Medical History Medical History HBP (high blood pressure) (Acute) Surgical History Surgical History History of surgical amputation of finger of left hand (Acute) Social History Social History Substance History: No History of Abuse Second Hand Smoke Exposure: No Smoking Status: Never smoker How Often Do You Have a Drink Containing Alcohol: Monthly or less Recent Travel in [facility] within the Last 8 Weeks: No Recent Out of Country Travel within the Last 8 Weeks: No Immunization History Tetanus Immunization: <5 Years Exam Narrative Exam Narrative: GENERAL: Well-nourished, well-developed, nontoxic-appearing white male in no acute distress. SKIN: Focused skin assessment warm/dry. SKIN: There is an indurated area in the encompassing the right thumb to the MP joint, largely on the dorsum of the hand. It is fluctuant but there is no pointing or drainage. HEAD: Atraumatic. Normocephalic. EYES: Pupils equal and round. No scleral icterus. No injection or drainage. ENT: No nasal bleeding or discharge. Mucous membranes pink and moist. NECK: Trachea midline. No JVD. CARDIOVASCULAR: Regular rate and rhythm. No murmur appreciated. RESPIRATORY: No accessory muscle use. Clear to auscultation. Breath sounds equal bilaterally. GASTROINTESTINAL: Abdomen soft, non-tender, nondistended. Hepatic and splenic margins not palpable. MUSCULOSKELETAL: No obvious deformities. No clubbing. No cyanosis. No edema. Focused right upper extremity exam: 2+ radial pulse. Patient retains full, active, painless ROM of the joints of the right hand, including the right thumb. Neurovascular intact distally on each digit. NEUROLOGICAL: Awake and alert. No obvious cranial nerve deficits. Motor grossly within normal limits. Normal speech. PSYCHIATRIC: Appropriate mood and affect; insight and judgment normal. Course Initial Documented Vital Signs Temperature 98.0 F 05/23/18 14:42 Pulse Rate 75 05/23/18 14:42 Respiratory Rate 18 05/23/18 14:42 Blood Pressure 133/65 05/23/18 14:42 Pulse Oximetry 97 05/23/18 14:42 Last Documented Vital Signs Temperature 98.0 F 05/23/18 14:42 Pulse Rate 76 05/23/18 18:10 Respiratory Rate 18 05/23/18 14:42 Blood Pressure 133/65 05/23/18 14:42 Pulse Oximetry 98 05/23/18 18:10 Medical Decision Making [facility] Narrative Medical decision making narrative: 72-year-old [id number] male with PMH of HTN presents the ED for evaluation of approximate 1 week history of pain , swelling and darkening of the right thumb. No known injury. He has been taking Bactrim for 3 days after seeing his PCP. Afebrile on presentation. Physical exam reveals a large abscess encompassing the right thumb. Neurovascularly intact distally. No loss of range of motion. Dr. Hamm came to bedside and punctured the abscess to obtain cultures. Basic lab work without acute findings. X-ray reveals mild osteoarthritis. Lactic acid 1.2. Blood cultures were obtained. Patient was administered IV vancomycin and Zosyn. Dr. Hamm plans to take the patient to surgery tonight. I spoke with Dr. Carcamo who agrees to accept the patient to the medicine service. Please see medicine and hand surgery notes for disposition. Medical Screen Exam Complete: Yes Emergency Medical Condition: Yes Differential Diagnosis Differential Diagnosis: Abscess versus osteomyelitis versus retained foreign body versus other Lab Data Result diagrams: 05/23/18 18:30 05/23/18 18:30 Lab Results 05/23/18 05/23/18 05/23/18 Range/Units 18:30 18:30 18:30 WBC 10.2 (4.0-11.0) th/mm3 RBC 4.66 (4.50-5.90) mil/mm3 Hgb 15.1 (13.0-17.0) gm/dL Hct 45.3 (39.0-51.0) % MCV 97.3 (80.0-100.0) fL MCH 32.5 (27.0-34.0) pg MCHC 33.3 (32.0-36.0) % RDW 13.4 (11.6-17.2) % Plt Count 276 (150-450) th/mm3 MPV 7.6 (7.0-11.0) fL Neut % (Auto) 83.1 H (16.0-70.0) % Lymph % (Auto) 9.3 (9.0-44.0) % Emmet % (Auto) 6.7 (0.0-8.0) % Eos % (Auto) 0.4 (0.0-4.0) % Baso % (Auto) 0.5 (0.0-2.0) % Neut # (Auto) 8.4 H (1.8-7.7) th/mm3 Lymph # (Auto) 0.9 L (1.0-4.8) th/mm3 Emmet # (Auto) 0.7 (0.0-0.9) th/mm3 Eos # (Auto) 0.0 (0.0-0.4) th/mm3 Baso # (Auto) 0.0 (0.0-0.2) th/mm3 WBC Differential . Differential Comment Auto diff final PT 10.4 (9.8-11.6) sec INR 1.0 Ratio APTT 30.3 (23.4-31.7) sec Sodium 135 L (136-145) meq/L Potassium 4.8 (3.5-5.1) meq/L Chloride 102 (98-107) meq/L Carbon Dioxide 25.7 (21.0-32.0) meq/L Anion Gap 7 (5-15) meq/L BUN 13 (7-18) mg/dL Creatinine 1.03 (0.60-1.30) mg/dL Estimated GFR 71 L (>89) mL/min Random Glucose 106 (74-106) mg/dL Lactic Acid (0.4-2.0) mmol/L Calcium 8.8 (8.5-10.1) mg/dL Total Bilirubin 2.1 H (0.2-1.0) mg/dL AST 21 (15-37) U/L ALT 20 (12-78) U/L Alkaline Phosphatase 112 (45-117) U/L Total Protein 8.1 (6.4-8.2) g/dL Albumin 4.0 (3.4-5.0) g/dL Blood Type Blood Type Recheck Antibody Screen 05/23/18 05/23/18 Range/Units 18:30 18:41 WBC (4.0-11.0) th/mm3 RBC (4.50-5.90) mil/mm3 Hgb (13.0-17.0) gm/dL Hct (39.0-51.0) % MCV (80.0-100.0) fL MCH (27.0-34.0) pg MCHC (32.0-36.0) % RDW (11.6-17.2) % Plt Count (150-450) th/mm3 MPV (7.0-11.0) fL Neut % (Auto) (16.0-70.0) % Lymph % (Auto) (9.0-44.0) % Emmet % (Auto) (0.0-8.0) % Eos % (Auto) (0.0-4.0) % Baso % (Auto) (0.0-2.0) % Neut # (Auto) (1.8-7.7) th/mm3 Lymph # (Auto) (1.0-4.8) th/mm3 Emmet # (Auto) (0.0-0.9) th/mm3 Eos # (Auto) (0.0-0.4) th/mm3 Baso # (Auto) (0.0-0.2) th/mm3 WBC Differential Differential Comment PT (9.8-11.6) sec INR Ratio APTT (23.4-31.7) sec Sodium (136-145) meq/L Potassium (3.5-5.1) meq/L Chloride (98-107) meq/L Carbon Dioxide (21.0-32.0) meq/L Anion Gap (5-15) meq/L BUN (7-18) mg/dL Creatinine (0.60-1.30) mg/dL Estimated GFR (>89) mL/min Random Glucose (74-106) mg/dL Lactic Acid 1.2 (0.4-2.0) mmol/L Calcium (8.5-10.1) mg/dL Total Bilirubin (0.2-1.0) mg/dL AST (15-37) U/L ALT (12-78) U/L Alkaline Phosphatase (45-117) U/L Total Protein (6.4-8.2) g/dL Albumin (3.4-5.0) g/dL Blood Type O Positive Blood Type Recheck Required Antibody Screen Negative Imaging Data Radiologist's impression: Chest X-Ray 05/23/18 18:10 CONCLUSION: No active disease. Finger X-Ray 05/23/18 18:10 CONCLUSION: No acute findings. Mild osteoarthritis of the thumb. ECG Data EKG Prior to Arrival: No Attestation: I personally reviewed and interpreted this ECG as follows: Interpretation: Rate 73, sinus rhythm. Normal intervals. Normal axis. No acute ST changes. Reviewed by Dr. Bustamante. Discharge Plan Discharge Disposition Patient Disposition: ED Admit(ED Internal Use Only) Discharge Condition Condition: Stable Discharge Order Discharge Orders: ED Use Only Admit Order (Routine); Ordered 05/23/18 Ordered By: Jenn Grossman Discharge Details Diagnosis: Abscess of thumb, right Physicians Team ED Provider: Patrick Bustamante ED Midlevel Provider: Jnen Grossman Primary Care Provider: UNKNOWN, Attending Provider: Surinder Cracamo Other Providers: Surjit Hamm ; [employer] Status ED Status: Admitted Observation Patient
[2018-05-23] MEDS: Piperacil/Tazo 4.5 GM Premix 4.5 GM/100 ML BAG IV.SIG SCH (18:25)
--- NOTE | 2018-05-23 18:51 | XR ---
EXAM DATE: 05/23/2018 6:46 PM EST AGE/SEX: 72 years / Male INDICATIONS: Fever. CLINICAL DATA: This is the patient's initial encounter. Patient reports that signs and symptoms have been present for 1 day and indicates a pain score of 0/10. MEDICAL/SURGICAL HISTORY: None. None. COMPARISON: [facility] [place], CHEST SINGLE AP, 05/30/2017. . FINDINGS: A single AP view of the chest demonstrates the lungs to be symmetrically aerated without evidence of mass, infiltrate or effusion. The cardiomediastinal contours are unremarkable. Osseous structures a re intact. CONCLUSION: No active disease. Electronically signed by: Raimundo Mixon MD Board Certified Radiologist 05/23/2018 6:50 PM EST
--- NOTE | 2018-05-23 18:53 | XR ---
EXAM DATE: 05/23/2018 6:43 PM EST AGE/SEX: 72 years / Male INDICATIONS: Right hand, thumb pain. Possible infection. CLINICAL DATA: This is the patient's initial encounter. Patient reports that signs and symptoms have been present for 1 day and indicates a pain score of 8/10. MEDICAL/SURGICAL HISTORY: None. None. COMPARISON: No prior exams available for comparison. FINDINGS: Bony structures are intact and in normal alignment. Joints are intact without dislocation or signifi cant arthropathy. Osseous density is normal. Soft tissues are unremarkable. No radiopaque foreign bodies seen. CONCLUSION: No acute findings. Mild osteoarthritis of the thumb. Electronically signed by: Raimundo Mixon MD Board Certified Radiologist 05/23/2018 6:52 PM EST
[2018-05-23 18:59] LABS: Baso % (Auto) 0.5 % (0.0-2.0); Eos % (Auto) 0.4 % (0.0-4.0); Hematocrit 45.3 % (39.0-51.0); Hemoglobin 15.1 gm/dL (13.0-17.0); Lymph # (Auto) 0.9 th/mm3 (1.0-4.8); Lymph % (Auto) 9.3 % (9.0-44.0); Mean Corpuscular HGB Conc 33.3 % (32.0-36.0); Mean Corpuscular Hemoglobin 32.5 pg (27.0-34.0); Mean Corpuscular Volume 97.3 fL (80.0-100.0); Mean Platelet Volume 7.6 fL (7.0-11.0); Mono # (Auto) 0.7 th/mm3 (0.0-0.9); Mono % (Auto) 6.7 % (0.0-8.0); Neut # (Auto) 8.4 th/mm3 (1.8-7.7); Neut % (Auto) 83.1 % (16.0-70.0); Platelet Count 276 th/mm3 (150-450); Red Blood Count 4.66 mil/mm3 (4.50-5.90); Red Cell Distribution Width 13.4 % (11.6-17.2); White Blood Count 10.2 th/mm3 (4.0-11.0)
[2018-05-23] MEDS ORDERED: Vancomycin Inj 1,000 MG in Sodium Chlor 0.9% Inj 250 ML IV.SIG SCH (19:00)
[2018-05-23 19:10] LABS: Activated Partial Thrombo Time 30.3 sec (23.4-31.7); Prothrombin Time 10.4 sec (9.8-11.6)
--- NOTE | 2018-05-23 19:19 | MB ---
cc: Surjit Hamm MD DATE: 05/23/2018 REASON FOR CONSULTATION: Right arm abscess. HISTORY OF PRESENT ILLNESS: The patient is a 72-year-old male with history of hypertension presenting with complaints of pain, swelling involving the right thumb for the past 1 week. It has been gradually worsening. The patient states he noticed sudden onset of pain, swelling and discoloration of the right thumb, which has been progressively getting worse. The patient was initially seen by his primary care and was started on p.o. antibiotics. The patient has been taking antibiotics and despite that pain and swelling with discoloration has worsened. Denies any fever. Denies any injury. Denies any tingling or numbness. The patient was seen by me in the past for dog bite to the left thumb status post revision amputation. Denies any complaints of the left thumb. PAST MEDICAL AND SURGICAL HISTORY: Reviewed. Significant for hypertension and surgical history is significant for revision amputation, left thumb. PHYSICAL EXAMINATION: GENERAL: The patient is alert, oriented x3. EXTREMITIES: Examination of the right thumb reveals purplish discoloration of the dorsal aspect of the thumb from distal aspect of the proximal phalanx region to the hyponychium. There is evidence of fluctuation extending from the hyponychium around the nail plate to the eponychial skin fold. The nail appears to be loose and fluctuant. Tenderness noted over the region. Mild swelling along the volar aspect of the pulp and the flexor tendon sheath noted. No tenderness noted over the flexor tendon sheath. No signs of compartment syndrome of the pulp noted. He has intact flexion and extension of the thumb. He has intact distal capillary refill over the pulp except for the hyponychium, which appears to be dark and purplish. The nail plate also appears to be purplish with no capillary refill. LABORATORY DATA: The lab work and x-rays are pending. ASSESSMENT: A 72-year-old male with abscess of the right thumb. PLAN: Plan will be to admit the patient for IV antibiotics, incision and drainage. We will obtain x-rays to rule out osteomyelitis and I will keep the patient n.p.o. to take him emergently for incision and drainage of the abscess. Surjit Hamm MD SE/janeth , 06:37 PM , 06:44 PM
[2018-05-23 19:25] LABS: Anion Gap 7 meq/L (5-15); Aspartate Aminotransferase 21 U/L (15-37); Blood Urea Nitrogen 13 mg/dL (7-18); Calcium 8.8 mg/dL (8.5-10.1); Carbon Dioxide 25.7 meq/L (21.0-32.0); Chloride 102 meq/L (98-107); Glomerular Filtration Rate 71 mL/min (>89); Glucose,Random 106 mg/dL (74-106); Potassium 4.8 meq/L (3.5-5.1); Sodium 135 meq/L (136-145)
[2018-05-23 19:26] LABS: Alanine Aminotransferase 20 U/L (12-78)
[2018-05-23 19:28] LABS: Alkaline Phosphatase 112 U/L (45-117); Total Protein 8.1 g/dL (6.4-8.2)
[2018-05-23] MEDS ORDERED: Acetaminophen 325 MG Tablet PO PRN ×2 (20:42→20:53)
[2018-05-23] MEDS ORDERED: Vancomycin Consult Pharmacy OTHER PRN (20:45)
[2018-05-23] MEDS ORDERED: Bisacodyl 10 MG Supp RECTAL PRN (20:53)
[2018-05-23] MEDS ORDERED: Neomycin/Polymyxin G.U. Irrigant 1 ML Ampul ONE (21:00)
--- NOTE | 2018-05-23 21:00 | P.HPIM ---
History of Present Illness Service: [facility] Primary Care Physician: UNKNOWN Dr. Natasha Mathur Speedwell Chief Complaint: right thumb swelling History of Present Illness: This is a 72 years old male with past medical history of hypertension , BPH And 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 Patient stated he seen his primary care physician on May 15 and the redness in the thumb was not there. Patient stated he do not know what happened, about he noticed the swelling on the right thumb and was very sensitive. On May 20 he stated that he cannot do anything, on the May, He stated, he called the [facility] to inform what happened, he was seen and was given p.o. antibiotics, Bactrim DS. He stated, However on the second day of antibiotic the redness and the swelling is worsening, his thumb becomes thicker and the color tends to purple. He took a picture and send it to his hand surgeon Dr. Estrada who instructed the patient to go to the emergency room to meet him there. Dr Hamm seen him in the Emergency room and did a drainage of the right thumb abscess. He Plan to admit the patient for IV antibiotics, with incision and drainage, obtain x-rays to rule out osteomyelitis and will keep the patient n.p.o. to take him emergently for incision and drainage of the abscess Patient denies any pain on the right thumb however just a sensitive feeling. Patient denies any fever or chills. Patient denies any association of numbness , pain, or decreased range of motion. Patient just had a complaint of swelling and redness which turning into purple on the right thumb.Patient denies any other medical history than hypertension, and a feeling of unable to urinate at some point which he started on the medication Flomax. Patient denies any history of infection, stated that his only history is the left thumb part amputation due to a dog bite about a year ago. Patient denies any headache or dizziness, denies any chest pain or shortness of breath, denies any abdominal pain, nausea, vomiting, diarrhea or constipation. Patient denies any fever or chills. Review of Systems Review of Systems: all other systems reviewed are negative [facility] Medical History Medical History BPH (benign prostatic hyperplasia) (Acute) Dog bite of right thumb (Acute) HBP (high blood pressure) (Acute) Surgical History Surgical History History of surgical amputation of finger of left hand (Acute) Social History Social History Substance History: No History of Abuse Second Hand Smoke Exposure: No Smoking Status: Never smoker How Often Do You Have a Drink Containing Alcohol: Monthly or less Recent Travel in [facility] within the Last 8 Weeks: No Recent Out of Country Travel within the Last 8 Weeks: No Immunization History Tetanus Immunization: <5 Years Medications and Allergies Allergies Allergy/AdvReac Type Severity Reaction Status Date / Time No Known Allergies Allergy Verified 05/23/18 14:47 Home Medications Medication Instructions Recorded Confirmed Type propranolol 20 mg PO DAILY 05/23/18 05/23/18 History sulfamethoxazole-trimethoprim 1 tab PO BID 05/23/18 05/23/18 History [Bactrim DS] tamsulosin [Flomax] 0.4 mg PO DAILY 05/23/18 05/23/18 History Active Medications: Active Medications Acetaminophen (Tylenol) 650 mg PO Q4H PRN PRN Reason: Temp > 100.4 Piperacillin/Tazobactam/Dextrose (Zosyn 4.5 Gm Premix) 4.5 gm in 100 mls @ 200 mls/hr IV.SIG ONCE FABY Last Infusion: 05/23/18 20:13 Dose: Infused Vancomycin HCl 1,000 mg/ (Sodium Chloride) 250 mls @ 250 mls/hr IV.SIG [facility] [employer] [facility] FABY Piperacillin/Tazobactam/Dextrose (Zosyn 4.5 Gm Premix) 4.5 gm in 100 mls @ 200 mls/hr IV.SIG Q6H FABY Lactobacillus Acidophilus (Lactinex Pkt) 1 gm PO TID FABY Ondansetron HCl (Zofran Inj) 4 mg IV.PUSH Q6H PRN PRN Reason: NAUSEA OR VOMITING Pharmacy Profile Note (Vancomycin Consult Pharmacy) 1 each OTHER UNSCH PRN PRN Reason: Pharmacy to dose Propranolol HCl (Inderal) 20 mg PO DAILY [facility] Sodium Chloride (Ns Flush) 2 ml IV.FLUSH UNSCH PRN PRN Reason: FLUSH AFTER USING IV ACCESS Sodium Chloride (Ns Flush) 2 ml IV.FLUSH BID FABY Sodium Chloride (Ns Flush) 2 ml IV.FLUSH PRN PRN PRN Reason: FLUSH AFTER USING IV ACCESS Tamsulosin HCl (Flomax) 0.4 mg PO DAILY [facility] Physical Exam Vital signs: Last Vital Signs Temp 98.0 F 05/23/18 14:42 Pulse 76 05/23/18 18:10 Resp 18 05/23/18 14:42 BP 133/65 05/23/18 14:42 Pulse Ox 98 05/23/18 18:10 Intake & Output 05/21/18 05/22/18 05/23/18 05/24/18 06:59 06:59 06:59 06:59 Intake Total 1200 / 1200 Balance 1200 / 1200 Weight 73.482 kg Narrative: GENERAL: Well-developed, well-nourished, male laying in bed in no apparent distress SKIN: Warm and dry. HEAD: Atraumatic. Normocephalic. EYES: Pupils equal and round. No scleral icterus. No injection or drainage. ENT: No nasal bleeding or discharge. Mucous membranes pink and moist. NECK: Trachea midline. No JVD. CARDIOVASCULAR: Regular rate and rhythm. RESPIRATORY: No accessory muscle use. Clear to auscultation. Breath sounds equal bilaterally. GASTROINTESTINAL: Abdomen soft, non-tender, nondistended. Hepatic and splenic margins not palpable. MUSCULOSKELETAL: Right thumb with edema and redness from distal phalynx extending to proximal phalynx, nailbed purple NEUROLOGICAL: Awake and alert. No obvious cranial nerve deficits. Motor grossly within normal limits. Five out of 5 muscle strength in the arms and legs. Normal speech. PSYCHIATRIC: Appropriate mood and affect; insight and judgment normal. Results Labs CBC & Chem 7: 05/23/18 18:30 05/23/18 18:30 Imaging Impressions Chest X-Ray 05/23/18 18:10 CONCLUSION: No active disease. Finger X-Ray 05/23/18 18:10 CONCLUSION: No acute findings. Mild osteoarthritis of the thumb. Caprini VTE Risk Assessment Caprini VTE Risk Assessment: No/Low Risk (score <= 1) Caprini Risk Assessment Model: Point Value = 1 Point Value = 2 Point Value = 3 Point Value = 5 Age 41-60 Minor surgery BMI > 25 kg/m2 Swollen legs Varicose veins or History of unexplained or recurrent spontaneous Oral contraceptives or hormone replacement Sepsis (< 1 month) Serious lung disease, including pneumonia (< 1 month) Abnormal pulmonary function Acute myocardial infarction Congestive heart failure (< 1 month) History of inflammatory bowel disease Medical patient at bed rest Age 61-74 Arthroscopic surgery Major open surgery (> 45 min) Laparoscopic surgery (> 45 min) Malignancy Confined to bed (> 72 hours) Immobilizing plaster cast Central venous access Age >= 75 History of VTE Family history of VTE Factor V Leiden Prothrombin [id number] Lupus anticoagulant Anticardiolipin antibodies Elevated serum homocysteine Heparin-induced thrombocytopenia Other congenital or acquired thrombophilia Stroke (< 1 month) Elective arthroplasty Hip, pelvis, or leg fracture Acute spinal cord injury (< 1 month) Prophylaxis Regimen: Total Risk Factor Score Risk Level Prophylaxis Regimen 0-1 Low Early ambulation 2 Moderate Order ONE of the following: *Sequential Compression Device (SCD) *Heparin 5000 units SQ BID 3-4 Higher Order ONE of the following medications: *Heparin 5000 units SQ TID *Enoxaparin/Lovenox 40 mg SQ daily (WT < 150 kg, CrCl > 30 mL/min) *Enoxaparin/Lovenox 30 mg SQ daily (WT < 150 kg, CrCl > 10-29 mL/min) *Enoxaparin/Lovenox 30 mg SQ BID (WT < 150 kg, CrCl > 30 mL/min) AND/OR *Sequential Compression Device (SCD) 5 or more Highest Order ONE of the following medications: *Heparin 5000 units SQ TID (Preferred with Epidurals) *Enoxaparin/Lovenox 40 mg SQ daily (WT < 150 kg, CrCl > 30 mL/min) *Enoxaparin/Lovenox 30 mg SQ daily (WT < 150 kg, CrCl > 10-29 mL/min) *Enoxaparin/Lovenox 30 mg SQ BID (WT < 150 kg, CrCl > 30 mL/min) AND *Sequential Compression Device (SCD) Assessment and Plan Plan This is a 72 years old male with past medical history of hypertension , BPH And 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 Patient is being admitted for right thumb abscess with possible I&D. Right thumb abscess, unknown cause Rule out osteomyelitis History of left thumb amputation due to dog bite a year ago Status post drainage at the bedside by Dr. Hamm -Hand surgeon consulted: appreciate recommendation - possible emergency I&D -Keep patient n.p.o. -On IV vancomycin and Zosyn for empiric treatment -PRN pain medication, Tylenol with bowel regimen -check blood culture, CBC, BMP, LFT and CRP Hypertension -Blood pressure controlled -Continue home dose propanolol -Monitor blood pressure, adjust medication as needed BPH -Continue home Flomax -Monitor FEN -IV fluid -Check labs in a.m., CBC, BMP -Add stool softeners, and PRN laxatives, as needed Zofran DVT prophylaxis: Bilateral SCDs, not on oral anticoagulation due to patient plan for I&D
[2018-05-23] MEDS: Sod Chloride 0.9% Inj 1,000 ML IV.CONT SCH (21:05)
[2018-05-23 21:23] LABS: Bilirubin,Urine Negative (Negative); Clarity,Urine Clear (Clear); Color,Urine Yellow (Yellw/Straw); Glucose,Urine (UA) Negative (Negative); Leukocyte Esterase,Urine Negative (Negative); Nitrite,Urine Negative (Negative); Specific Gravity,Urine 1.026 (1.002-1.035)
[2018-05-23] MEDS: Senna/Docusate Sodium 8.6/50 MG Tablet PO SCH (22:34)
--- NOTE | 2018-05-24 00:39 | P.OP ---
- Preoperative Diagnosis (1) Abscess of thumb, right - Postoperative Diagnosis (1) Abscess of thumb, right Date of procedure: 05/24/18 Procedure: incision and drainage, avulsion of the nail plate, excisional debridement right thumb nail bed abscess Anesthesia: other (general, LMA) Surgeon: Surjit Hamm MD Estimated blood loss (mL): 2 Pathology: none sent Operation and Findings: abscess involving the hyponychium, subungual region, lateral nail folds and dorsal surface of the thumb IP joint region
[2018-05-24] MEDS: Piperacil/Tazo 4.5 GM Premix 4.5 GM/100 ML BAG IV.SIG SCH ×6 (01:00→23:55)
--- NOTE | 2018-05-24 01:49 | MP ---
cc: Surjit Hamm MD DATE OF OPERATION: 05/23/2018 PREOPERATIVE DIAGNOSIS: Abscess, right thumb. POSTOPERATIVE DIAGNOSIS: Abscess, right thumb. PROCEDURE PERFORMED: Incision and drainage, a Bartolo nail plate, excisional debridement of right thumb nail bed abscess. SURGEON: Surjit Hamm MD ANESTHESIA: General. ESTIMATED BLOOD LOSS: Minimal. TOURNIQUET: No tourniquet was used. SPECIMENS: No specimen was sent. INDICATIONS: The patient is a 72-year-old male who presented to the ED with complaints of pain and swelling involving the right thumb for 4-5 days' duration, which has been gradually worsening for the past several hours. On examination, he had a fluctuant mass over the dorsal aspect of the thumb involving the hyponychium, nail bed, lateral nail folds, eponychial skin fold, extending up to the dorsal aspect of the middle phalanx region. X-rays were negative for osteomyelitis. In the ER, the patient had opening up of the fluctuating mass to drain the abscess temporarily until he is awaiting for surgery. The specimen was sent for culture and sensitivity. The patient was consented for incision and drainage of right thumb abscess. He was explained the risks and benefits of the procedure. DESCRIPTION OF PROCEDURE: The patient was brought to the operating room. Under general anesthesia, the right upper extremity was sterilely prepped and draped. The devitalized skin was excised. The nail plate was avulsed from the nail bed and was on top of the eponychial skin fold. Part of the hyponychium, the nail plate, lateral nail folds, and the eponychial skin was removed, excised. Purulent material was noted. As cultures were sent from the ER, no cultures were sent from the OR. He did have necrotic tissue over the nail bed and the lateral nail folds, which was debrided using blunt and sharp dissection. Thorough was given using normal saline mixed with irrigant and normal saline mixed with hydrogen peroxide, about a liter of solution was used. At the end of the procedure, the patient had open nail bed, lateral nail folds and eponychial skin fold. No evidence of involvement of the distal interphalangeal joint or the bone was noted intraoperatively. The nail plate was shortened to about 4-5 mm in length and was cleared of soft tissue, soaked in antibiotic solution and was reinserted underneath the eponychial skin fold to prevent scarring of the eponychial skin fold to the nail bed. Bacitracin and Adaptic dressing was applied. A bulky hand dressing was applied, which was held in place with Sof-Rol, and a Anthony. The patient had good distal circulation at the end of the procedure. He was recovered and sent to the recovery room in stable condition. We will continue with IV antibiotics, followup cultures and will plan on changing the dressing tomorrow. Surjit Hamm MD SE/christal , 12:44 AM , 12:54 AM
[2018-05-24 05:25] LABS: Baso % (Auto) 0.4 % (0.0-2.0); Eos # (Auto) 0.1 th/mm3 (0.0-0.4); Eos % (Auto) 1.1 % (0.0-4.0); Hematocrit 39.5 % (39.0-51.0); Hemoglobin 13.4 gm/dL (13.0-17.0); Lymph # (Auto) 0.9 th/mm3 (1.0-4.8); Mean Corpuscular HGB Conc 34.1 % (32.0-36.0); Mean Corpuscular Hemoglobin 33.2 pg (27.0-34.0); Mean Corpuscular Volume 97.4 fL (80.0-100.0); Mean Platelet Volume 7.4 fL (7.0-11.0); Mono # (Auto) 0.6 th/mm3 (0.0-0.9); Mono % (Auto) 9.4 % (0.0-8.0); Neut # (Auto) 4.5 th/mm3 (1.8-7.7); Neut % (Auto) 74.1 % (16.0-70.0); Platelet Count 217 th/mm3 (150-450); Red Blood Count 4.05 mil/mm3 (4.50-5.90); Red Cell Distribution Width 13.1 % (11.6-17.2); White Blood Count 6.1 th/mm3 (4.0-11.0)
[2018-05-24 05:42] LABS: Calcium 7.3 mg/dL (8.5-10.1); Carbon Dioxide 20.6 meq/L (21.0-32.0); Potassium 3.8 meq/L (3.5-5.1); Total Protein 6.6 g/dL (6.4-8.2)
[2018-05-24 06:47] LABS: Albumin 3.2 g/dL (3.4-5.0); Calcium-Albumin Corrected 7.9 mg/dL (8.5-10.1)
[2018-05-24] MEDS: Sod Chloride 0.9% Inj 1,000 ML IV.CONT SCH ×2 (07:35→16:50)
[2018-05-24] MEDS: Senna/Docusate Sodium 8.6/50 MG Tablet PO SCH ×2 (09:44→20:59)
[2018-05-24] MEDS: Vancomycin Inj 750 MG in Sodium Chlor 0.9% Inj 250 ML IV.SIG SCH ×2 (10:47→20:56)
--- NOTE | 2018-05-24 12:01 | P.PNIM ---
Subjective Interval history: Patient is lying in bed comfortably this morning, slept well overnight following surgical I&D of his right thumb. He has no complaints this morning. His right thumb is in a surgical bandage. Physical Exam Vital signs: Last Vital Signs Temp 98.3 F 05/24/18 11:53 Pulse 67 05/24/18 11:53 Resp 16 05/24/18 11:53 BP 125/69 05/24/18 11:53 Pulse Ox 96 05/24/18 11:53 Intake & Output 05/22/18 05/23/18 05/24/18 05/25/18 06:59 06:59 06:59 06:59 Intake Total 1600 / 1600 1100 / 1100 Output Total 302 / 302 Balance 1298 / 1298 1100 / 1100 Weight 73.482 kg Narrative: GENERAL: Well-developed, well-nourished, male laying in bed in no apparent distress SKIN: Warm and dry. Right thumb is wrapped in surgical bandage HEAD: Atraumatic. Normocephalic. EYES: Pupils equal and round. No scleral icterus. No injection or drainage. ENT: No nasal bleeding or discharge. Mucous membranes pink and moist. NECK: Trachea midline. No JVD. CARDIOVASCULAR: Regular rate and rhythm. RESPIRATORY: No accessory muscle use. Clear to auscultation. Breath sounds equal bilaterally. GASTROINTESTINAL: Abdomen soft, non-tender, nondistended. Hepatic and splenic margins not palpable. MUSCULOSKELETAL: Right thumb with edema and redness from distal phalynx extending to proximal phalynx, nailbed purple NEUROLOGICAL: Awake and alert. No obvious cranial nerve deficits. Motor grossly within normal limits. Five out of 5 muscle strength in the arms and legs. Normal speech. PSYCHIATRIC: Appropriate mood and affect; insight and judgment normal. Results Labs CBC & Chem 7: 05/24/18 04:00 05/24/18 04:00 Labs: Microbiology 05/23/18 18:30 Blood - Line Aerobic Blood Culture - Preliminary No growth in 1 day 05/23/18 18:30 Blood - Line Anaerobic Blood Culture - Preliminary No growth in 1 day 05/23/18 18:15 Blood - Line Aerobic Blood Culture - Preliminary No growth in 1 day 05/23/18 18:15 Blood - Line Anaerobic Blood Culture - Preliminary No growth in 1 day 05/23/18 18:15 Abscess - Thumb Gram Stain - Final Imaging Imaging: Impressions Chest X-Ray 05/23/18 18:10 CONCLUSION: No active disease. Finger X-Ray 05/23/18 18:10 CONCLUSION: No acute findings. Mild osteoarthritis of the thumb. Assessment and Plan Plan This is a 72 years old male with past medical history of hypertension , BPH presented to the emergency room with the complaints of swelling and warmth involving the right thumb for the past week. Patient underwent surgical I&D on night of 05/23/2018. Right thumb abscess, s/p I&D 05/23/2018 Status post drainage and surgical I&D by Dr. Hamm Continuing IV vancomycin and Zosyn No evidence of osteomyelitis on plain film Will defer to surgical opinion regarding further workup for osteomyelitis Appreciate hand surgery Hypertension Continue home dose propanolol Monitor blood pressure, adjust medication as needed BPH Continue Flomax, monitor output clinically h/o traumatic amputation of left thumb tip His left thumb tip was bit off by a dog in May 2016, unrelated to current issue DVT prophylaxis SCDs Progress Note: Quality VTE Deep Vein Thrombosis/Pulmonary Embolism Present on Admission: Yes
[2018-05-24] MEDS: Acetaminophen 325 MG Tablet PO PRN (15:18)
--- NOTE | 2018-05-24 15:18 | ECG ---
Date Performed: 05/23/2018 Time Performed: 18:23:05 PTAGE: 72 years EKG: Small inferior Q waves of undetermined significance minor nonspecific ST-T wave change Comp ared to PREVIOUS TRACING , no significant change PREVIOUS TRACIN05/31/2017 09.34 DOCTOR: Constantin Matthews Interpretating Date/Time 05/24/2018 15:16:27
[2018-05-25] MEDS: Sod Chloride 0.9% Inj 1,000 ML IV.CONT SCH ×3 (02:56→23:08)
[2018-05-25] MEDS: Piperacil/Tazo 4.5 GM Premix 4.5 GM/100 ML BAG IV.SIG SCH ×4 (05:10→22:57)
[2018-05-25] MEDS ORDERED: Pharmacy Ordered Lab Info OTHER ONE (08:45)
[2018-05-25] MEDS: Senna/Docusate Sodium 8.6/50 MG Tablet PO SCH ×2 (09:02→20:16)
[2018-05-25 09:38] LABS: Vancomycin,Trough 4.5 mcg/mL (5.0-10.0)
[2018-05-25] MEDS: Vancomycin Inj 750 MG in Sodium Chlor 0.9% Inj 250 ML IV.SIG SCH (10:22)
--- NOTE | 2018-05-25 11:32 | P.PNIM ---
Subjective Interval history: Patient feels well, his right hand remains wrapped postop. He denies any significant pain. We had a discussion about cultures and how they take 3 days to grow out typically. He was evaluated by hand surgery, both hand surgeon and myself agree that a safe discharge would include a culture with sensitivities for oral antibiotic selection. Physical Exam Vital signs: Last Vital Signs Temp 98.6 F 05/25/18 07:13 Pulse 62 05/25/18 07:13 Resp 16 05/25/18 07:13 BP 137/75 05/25/18 07:13 Pulse Ox 98 05/25/18 07:13 Intake & Output 05/23/18 05/24/18 05/25/18 05/26/18 06:59 06:59 06:59 06:59 Intake Total 1600 / 1600 4975.0 / 4975.0 50.5 / 50.5 Output Total 302 / 302 1500 / 1500 Balance 1298 / 1298 3475.0 / 3475.0 50.5 / 50.5 Weight 73.482 kg Narrative: GENERAL: Well-developed, well-nourished, male laying in bed in no apparent distress SKIN: Warm and dry. Right thumb is wrapped in surgical bandage HEAD: Atraumatic. Normocephalic. EYES: Pupils equal and round. No scleral icterus. No injection or drainage. ENT: No nasal bleeding or discharge. Mucous membranes pink and moist. NECK: Trachea midline. No JVD. CARDIOVASCULAR: Regular rate and rhythm. RESPIRATORY: No accessory muscle use. Clear to auscultation. Breath sounds equal bilaterally. GASTROINTESTINAL: Abdomen soft, non-tender, nondistended. Hepatic and splenic margins not palpable. MUSCULOSKELETAL: Right thumb with edema and redness from distal phalynx extending to proximal phalynx, nailbed purple NEUROLOGICAL: Awake and alert. No obvious cranial nerve deficits. Motor grossly within normal limits. Five out of 5 muscle strength in the arms and legs. Normal speech. PSYCHIATRIC: Appropriate mood and affect; insight and judgment normal. Results Labs CBC & Chem 7: 05/24/18 04:00 05/25/18 03:29 Labs: Microbiology 05/23/18 18:30 Blood - Line Aerobic Blood Culture - Preliminary No growth in 2 days 05/23/18 18:30 Blood - Line Anaerobic Blood Culture - Preliminary No growth in 2 days 05/23/18 18:15 Blood - Line Aerobic Blood Culture - Preliminary No growth in 2 days 05/23/18 18:15 Blood - Line Anaerobic Blood Culture - Preliminary No growth in 2 days 05/23/18 18:15 Abscess - Thumb Gram Stain - Final 05/23/18 18:15 Abscess - Thumb Wound Culture - Final Assessment and Plan Plan This is a 72 years old male with past medical history of hypertension , BPH presented to the emergency room with the complaints of swelling and warmth involving the right thumb for the past week. Patient underwent surgical I&D on night of 05/23/2018. Right thumb abscess, s/p I&D 05/23/2018 Status post drainage and surgical I&D by Dr. Hamm Continuing IV vancomycin and Zosyn No evidence of osteomyelitis on plain film Wound cultures with sensitivities are still pending, necessary for oral antibiotic selection Appreciate hand surgery Hypertension Continue home dose propanolol Monitor blood pressure, adjust medication as needed BPH Continue Flomax, monitor output clinically h/o traumatic amputation of left thumb tip His left thumb tip was bit off by a dog in May 2016, unrelated to current issue DVT prophylaxis SCDs Discharge planning Once cultures indicate antibiotic sensitivities, p.o. antibiotic can be selected and patient will be discharged Progress Note: Quality VTE Deep Vein Thrombosis/Pulmonary Embolism Present on Admission: Yes
[2018-05-25] MEDS: Vancomycin Inj 1,000 MG in Sodium Chlor 0.9% Inj 250 ML IV.SIG SCH (20:13)
[2018-05-25] MEDS: Acetaminophen 325 MG Tablet PO PRN (20:15)
[2018-05-26] MEDS: Sod Chloride 0.9% Inj 1,000 ML IV.CONT SCH ×2 (02:41→12:09)
[2018-05-26] MEDS: Piperacil/Tazo 4.5 GM Premix 4.5 GM/100 ML BAG IV.SIG SCH ×2 (04:57→11:24)
[2018-05-26] MEDS: Vancomycin Inj 1,000 MG in Sodium Chlor 0.9% Inj 250 ML IV.SIG SCH (08:01)
[2018-05-26] MEDS: Senna/Docusate Sodium 8.6/50 MG Tablet PO SCH (09:59)
[2018-05-26 10:44] VITALS: RESP 16
[2018-05-26 11:38] LABS: Blood Urea Nitrogen 6 mg/dL (7-18); Glomerular Filtration Rate Greater Than 89 mL/min (>89)
--- NOTE | 2018-05-26 12:08 | P.PNIM ---
Subjective Interval history: Mr. Rosario feels well, his thumb continues to improve daily. He would like to go home, but we are awaiting more information from wound cultures to help guide antibiotic selection. If nothing grows out he can be discharged with an empiric antibiotic choice once cleared by hand surgery. Physical Exam Vital signs: Last Vital Signs Temp 97.6 F 05/26/18 08:00 Pulse 66 05/26/18 08:00 Resp 16 05/26/18 08:00 BP 145/72 H 05/26/18 08:00 Pulse Ox 97 05/26/18 08:00 Intake & Output 05/24/18 05/25/18 05/26/18 05/27/18 06:59 06:59 06:59 06:59 Intake Total 1600 / 1600 4975.0 / 4975.0 3430.5 / 3430.5 250 / 250 Output Total 302 / 302 1500 / 1500 Balance 1298 / 1298 3475.0 / 3475.0 3430.5 / 3430.5 250 / 250 Weight 73.482 kg Narrative: GENERAL: Well-developed, well-nourished, male laying in bed in no apparent distress SKIN: Warm and dry. Right thumb is wrapped in surgical bandage HEAD: Atraumatic. Normocephalic. EYES: Pupils equal and round. No scleral icterus. No injection or drainage. ENT: No nasal bleeding or discharge. Mucous membranes pink and moist. NECK: Trachea midline. No JVD. CARDIOVASCULAR: Regular rate and rhythm. RESPIRATORY: No accessory muscle use. Clear to auscultation. Breath sounds equal bilaterally. GASTROINTESTINAL: Abdomen soft, non-tender, nondistended. Hepatic and splenic margins not palpable. MUSCULOSKELETAL: Right thumb with edema and redness from distal phalynx extending to proximal phalynx, nailbed purple NEUROLOGICAL: Awake and alert. No obvious cranial nerve deficits. Motor grossly within normal limits. Five out of 5 muscle strength in the arms and legs. Normal speech. PSYCHIATRIC: Appropriate mood and affect; insight and judgment normal. Results Labs CBC & Chem 7: 05/24/18 04:00 05/26/18 09:00 Labs: Microbiology 05/23/18 18:30 Blood - Line Aerobic Blood Culture - Preliminary No growth in 3 days 05/23/18 18:30 Blood - Line Anaerobic Blood Culture - Preliminary No growth in 3 days 05/23/18 18:15 Blood - Line Aerobic Blood Culture - Preliminary No growth in 3 days 05/23/18 18:15 Blood - Line Anaerobic Blood Culture - Preliminary No growth in 3 days 05/23/18 18:15 Abscess - Thumb Gram Stain - Final 05/23/18 18:15 Abscess - Thumb Wound Culture - Final Assessment and Plan Plan This is a 72 years old male with past medical history of hypertension , BPH presented to the emergency room with the complaints of swelling and warmth involving the right thumb for the past week. Patient underwent surgical I&D on night of 05/23/2018. Right thumb abscess, s/p I&D 05/23/2018 Status post drainage and surgical I&D by Dr. Hamm Continuing IV vancomycin and Zosyn No evidence of osteomyelitis on plain film No bacterial growth on wound cultures after 3 days Possible need to select antibiotics empirically We will await clearance by hand surgery Hypertension Continue home dose propanolol Monitor blood pressure, adjust medication as needed BPH Continue Flomax, monitor output clinically h/o traumatic amputation of left thumb tip His left thumb tip was bit off by a dog in May 2016, unrelated to current issue DVT prophylaxis SCDs Discharge planning No bacterial growth on culture after 3 days May be discharged home on empiric antibiotic selection once cleared by hand surgery Progress Note: Quality VTE Deep Vein Thrombosis/Pulmonary Embolism Present on Admission: Yes
[2018-05-26 12:36] VITALS: BP 121/70; PULSE 57; TEMP 97.5; O2SAT 98
--- NOTE | 2018-05-26 15:31 | P.DS ---
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 Patient stated he seen his primary care physician on May 15 and the redness in the thumb was not there. Patient stated he do not know what happened, about he noticed the swelling on the right thumb and was very sensitive. On May 20 he stated that he cannot do anything, on the May, He stated, he called the [facility] to inform what happened, he was seen and was given p.o. antibiotics, Bactrim DS. He stated, However on the second day of antibiotic the redness and the swelling is worsening, his thumb becomes thicker and the color tends to purple. He took a picture and send it to his hand surgeon Dr. Estrada who instructed the patient to go to the emergency room to meet him there. Dr Hamm seen him in the Emergency room and did a drainage of the right thumb abscess. He Plan to admit the patient for IV antibiotics, with incision and drainage, obtain x-rays to rule out osteomyelitis and will keep the patient n.p.o. to take him emergently for incision and drainage of the abscess Patient denies any pain on the right thumb however just a sensitive feeling. Patient denies any fever or chills. Patient denies any association of numbness , pain, or decreased range of motion. Patient just had a complaint of swelling and redness which turning into purple on the right thumb.Patient denies any other medical history than hypertension, and a feeling of unable to urinate at some point which he started on the medication Flomax. Patient denies any history of infection, stated that his only history is the left thumb part amputation due to a dog bite about a year ago. Patient denies any headache or dizziness, denies any chest pain or shortness of breath, denies any abdominal pain, nausea, vomiting, diarrhea or constipation. Patient denies any fever or chills. DS: Summary 9-year-old male with a history of hypertension BPH presented 3 days ago with a severe infection of his right thumb that became worse despite being on Bactrim for 2-1/2 days. He required needle aspiration of pus in the ER followed by incision and drainage with hand surgery later that evening. Since then he has been on IV vancomycin and Zosyn. Cultures have grown nothing in the last 3 days. Clinically he is improved and is stable for discharge. Given that he failed a course of Bactrim prior to admission I am recommending Levaquin 500 mg daily for 7 days. He is instructed to follow-up at the next available appointment this week with his hand surgeon. I have asked him to check the thumb once daily to monitor for any worsening, if worsening occurs he is instructed to come to the ER immediately for resumption of IV antibiotics. Time Spent with Patient Total time spent providing and/or coordinating discharge services: Less than 30 minutes Quality: VTE Deep Vein Thrombosis/Pulmonary Embolism Present on Admission: Yes Results Labs on day of discharge: Labs from last 24 hours 05/26/18 09:00 BUN 6 L Creatinine 0.73 Estimated GFR Greater than 89 Preliminary micro results at discharge 05/23/18 18:30 Aerobic Blood Culture - Preliminary Blood - Line No growth in 3 days Anaerobic Blood Culture - Preliminary No growth in 3 days 05/23/18 18:15 Aerobic Blood Culture - Preliminary Blood - Line No growth in 3 days Anaerobic Blood Culture - Preliminary No growth in 3 days Impressions ITS Impressions Chest X-Ray 05/23/18 18:10 CONCLUSION: No active disease. Finger X-Ray 05/23/18 18:10 CONCLUSION: No acute findings. Mild osteoarthritis of the thumb. Discharge Plan Discharge Disposition Patient Disposition: 01 Discharge Home Discharge Condition Condition: Stable Discharge Order Discharge Orders: Discharge Order (Routine); Ordered 05/26/18 Ordered By: Ricardo Gamble Discharge Details Anticipated Discharge Date: 05/26/18 Physicians Team Primary Care Provider: UNKNOWN, Attending Provider: Ricardo Gamble Other Providers: Surjit Hamm ; Kareen Mathur Rxs /Orders / Referrals /Forms Prescriptions: New levofloxacin [Levaquin] 500 mg tablet 500 mg PO DAILY 7 Days Qty: 7 RF: 0 Continue tamsulosin [Flomax] 0.4 mg Capsule 0.4 mg PO DAILY RF: 0 propranolol 20 mg Tablet 20 mg PO DAILY RF: 0 Discontinued sulfamethoxazole-trimethoprim [Bactrim DS] 800-160 mg Tablet 1 tab PO BID RF: 0 Referrals: UNKNOWN, [Primary Care Provider] - See Instructions Discharge Instructions Patient Printed Instructions: Levofloxacin (By mouth), Incision and Drainage ( DC) Post Discharge Care Plan Care Plan Goals: Your Health Problems: Goals to Promote Your Health: * To prevent worsening of your condition * To maintain your health at the optimal level Directions to Meet Your Goals: * Take your medications as prescribed * Follow your dietary instruction * Follow activity as directed * Keep your appointments as scheduled * Take your immunizations and boosters as scheduled * If your symptoms worsen call your PCP * If no PCP go to Urgent Care or Emergency Room Smoking is dangerous to your health. Avoid second hand smoke. You may reach the 24-hour crisis hotline for domestic abuse at . Status ED Status: Left Department
[2018-05-27] MEDS ORDERED: Pharmacy Ordered Lab Info OTHER ONE (07:45)
== END 2018-05-26 16:59 | disposition home or self-care (01) | DRG 603 ==
LOC: NEDA 14:38 → NEPC 14:38 → NEPGCP 21:40
PROVIDERS: ADMIT Family Medicine; ATTEND Family Medicine
CPT/HCPCS: 71010; 71045; 73140; 80048; 80053; 80076; 80202; 81001; 82040; 82565; 83605; 84520; 85025; 85610; 85730; 86140; 86850; 86900; 86901; 87040; 87070; 87205; 90765; 90766; 93005; 96365; 96366; 99285; J2543; J3370; J7030; J7050